=== PATIENT | female | born 1950 | race African-American/Black ===

== ENCOUNTER 2025-08-09 18:34 | Emergency (ER) | payer MEDICARE, OTHER ==
[~2025-08-09] VITALS: Ht 170.2 cm; Wt 64.0 kg
[2025-08-09 18:39] VITALS: O2SAT 100
[2025-08-09] MEDS: FLUORESCEIN SODIUM 1MG/STRIP RIGHTEYE ONE (20:30)
[2025-08-09] MEDS: TETRACAINE 0.5% OPHTH DROPS 4ML BOTHEYE ONE (20:30)
[2025-08-09 22:37] VITALS: BP 124/82; PULSE 91; RESP 20; TEMP 36.7; O2SAT 99
== END 2025-08-09 22:40 | disposition home or self-care (01) ==
LOC: ER 18:34
DX: H11.31 Conjunctival hemorrhage, right eye (principal)
CPT/HCPCS: 99283